=== PATIENT | female | born 1950 | race African-American/Black ===

== ENCOUNTER 2016-11-05 16:09 | Inpatient (IN) | payer OTHER, MEDICAID ==
[2016-11-05] MEDS ORDERED: NS 1000 ML 1,000 ML IV ONE (16:55)
[2016-11-05] MEDS ORDERED: NS 1000 ML 1,000 ML ONE (16:56)
[2016-11-05 17:15] LABS: ALANINE AMINOTRANSFERASE 67 Units/L (12-78); ALBUMIN 3.1 g/dL (3.4-5.0); ALKALINE PHOSPHATASE 68 Units/L (46-116); ASPARTATE AMINO TRANSFERASE 58 Units/L (15-37); SODIUM 149 mmol/L (136-145); TOTAL PROTEIN 6.4 g/dL (6.4-8.2)
--- NOTE | 2016-11-05 17:22 | DR.GENAD ---
HPI - PCP Primary Care Physician: spaulding - Complaint/Symptoms Chief Complaint Doctors Comments: History as stated by nurses note. Patient with left left leg pain and shortness of breath. Chief Complaint:: family stated her right arm has been swelling since friday, cant swollow since friday, and abd pain that started friday. - Source History Provided: Family Member, Care Home - Mode of Arrival Mode of Arrival: Stretcher - Timing Onset of Chief Complaint: 11/03/16 PMH - PMH Past Medical History: Yes Past Medical History: Anemia, Angina, Anxiety, Asthma, Coronary Artery Disease, CVA, Diabetes, Dyslipidemia, GERD, Hypertension, [place], Renal Disease Past Surgical History: Yes Surgical History: Hysterectomy Unable to Obtain Due To: Altered mental status - Family History History of Family Medical Conditions: Yes Family Medical History: Diabetes Mellitus, SD, Sudden Cardiac - Social History Does patient currently use any type of tobacco product: No Have you used tobacco products in the last 12 months: No Type of Tobacco Use: None Does any household member use tobacco: No Alcohol Use: None Do you use any recreational Drugs:: No Lives With: Family Lives Where: Home - infectious screening In the last 2 months have you had wt loss of >10#?: NO Have you had fever, night sweats or hemotysis?: No Have you traveled outside the country in the last 6 months?: No Isolation: Standard ROS - Review of Systems Constitutional: No Symptoms Reported Eyes: No Symptoms Reported ENTM: No Symptoms Reported Respiratoy: No Symptoms Reported Cardiovascular: No Symptoms Reported, Chest Pain Gastrointestinal/Abdominal: No Symptoms Reported Genitourinary: No Symptoms Reported Neurological: No Symptoms Reported Musculoskeletal: No Symptoms Reported Integumentary: No Symptoms Reported Hematologic/Lymphatic: No Symptoms Reported Endocrine: No Symptoms Reported Psychiatric: No Symptoms Reported All Other Systems: Reviewed and Negative PE - Vital Signs Vitals: Temperature 98.7 F Pulse Rate [Apical] 95 Pulse Rate 91 Respiratory Rate 20 Blood Pressure [Left Calf] 56/23 Blood Pressure [Right Arm] 123/70 Blood Pressure [Left Arm] 87/45 Blood Pressure 91/56 O2 Sat by Pulse Oximetry 99 - General Limitations: No Limitations General Appearance: Obtunded, Other (Responds to pain) - Head Head Exam: Normal Inspection, Atraumatic - Eyes Eye exam: Normal Appearance, PERRL, EOMI - ENT ENT Exam: Normal Exam External Ear Exam: Normal External Inspection TM/Canal Exam: Bilateral Normal Nose Exam: Normal Nose Exam Mouth Exam: Normal Inspection Throat Exam: Normal Inspection - Chest Chest Inspection: Normal Inspection - Respiratory Respiratory Exam: Normal Lung Sounds Bilat Respiratory Exam: Bilateral Clear to Auscultation - Cardiovascular Cardiovascular Exam: Regular Rate - Abdominal Exam Abdominal Exam: Normal Inspection Abdominal Tenderness: negative: RUQ, RLQ, LUQ, LLQ, Epigastrium, Suprapubic, Diffuse, Mild, Moderate, Severe, Other - Extremities Extremities Exam: Tenderness, Edema (left thigh) - Back Back Exam: Normal Inspection - Neurologic Neurological Exam: Alert, Other (responsive to touch) - Psychiatric Psychiatric Exam: Normal Affect - Skin Skin Exam: Warm, Dry. negative: Intact, Normal Color, Rash, Cyanosis, Diaphoresis, Erythema, Pallor, Mottled, Other ROR - Labs Reviewed Laboratory Results Reviewed?: Yes (low H/H; elevated BUN/Cr) Result Diagrams: 11/05/16 18:45 11/05/16 18:45 Laboratory: WBC 5.4 X10^3/uL (3.6-10.0) 11/05/16 18:45 RBC 1.37 X10^6/uL (3.5-5.4) L 11/05/16 18:45 Hgb 2.8 g/dL (12.0-16.0) L* 11/05/16 18:45 Hct 9.7 % (36.0-47.0) L* 11/05/16 18:45 MCV 71.1 fL (80.0-100.0) L 11/05/16 18:45 MCH 20.5 pg (27.0-34.0) L 11/05/16 18:45 MCHC 28.8 g/dL (33.0-35.0) L 11/05/16 18:45 RDW 22.5 % (11.6-16.5) H 11/05/16 18:45 Plt Count 260 X10^3/uL (150.0-450.0) 11/05/16 18:45 Plt Count Comment Adequate (ADEQUATE) 11/05/16 18:45 MPV 8.4 fL (7.4-11.0) 11/05/16 18:45 Neut % 77.4 % (42.0-75.0) H 11/05/16 18:45 Lymph % 11.6 % (21.0-51.0) L 11/05/16 18:45 [place] % 10.2 % (0.0-13.0) 11/05/16 18:45 Eos % 0.3 % (0.9-2.9) L 11/05/16 18:45 Baso % 0.5 % (0.2-1.0) 11/05/16 18:45 Neut # 4.2 x10^3/uL (2.2-4.8) 11/05/16 18:45 Lymph # 0.6 X10^3/uL (1.3-2.9) L 11/05/16 18:45 [place] # 0.6 x10^3/uL (0.3-0.8) 11/05/16 18:45 Eos # 0.0 x10^3/uL (0.0-0.2) 11/05/16 18:45 Baso # 0.0 X10^3/uL (0.0-0.1) 11/05/16 18:45 Absolute Nucleated RBC 0.8 /100WBC 11/05/16 18:45 Plt Morphology Comment Normal (NORMAL) 11/05/16 18:45 RBC Morphology Abnormal (NORMAL) A 11/05/16 18:45 Hypochromasia 2+ A 11/05/16 18:45 Poikilocytosis 2+ A 11/05/16 18:45 Anisocytosis 2+ A 11/05/16 18:45 Target Cells Present 11/05/16 18:45 Tear Drop Cells Present 11/05/16 18:45 INR Target Range - 11/05/16 16:50 INR 1.93 (0.8-1.3) H 11/05/16 16:50 PTT 33.4 SECONDS (22.9-36.5) 11/05/16 16:50 PTT Comment - 11/05/16 16:50 D-Dimer < 100 ng/mL (0-400) 11/05/16 18:45 Sodium 149 mmol/L (136-145) H 11/05/16 18:45 Corrected Sodium 151 mmol/L (136-145) H 11/05/16 18:45 Potassium 4.4 mmol/L (3.5-5.1) 11/05/16 18:45 Chloride 114 mmol/L (98-107) H 11/05/16 18:45 Carbon Dioxide 21.7 mmol/L (21-32) 11/05/16 18:45 BUN 43 mg/dL (7-18) H 11/05/16 18:45 Creatinine 1.64 mg/dL (0.55-1.02) H 11/05/16 18:45 Est GFR (MDRD) Af Amer 40 (>60) L 11/05/16 18:45 Est GFR (MDRD) Non-Af 33 (>60) L 11/05/16 18:45 Glucose 197 mg/dL (65-99) H 11/05/16 18:45 Calcium 7.8 mg/dL (8.5-10.1) L 11/05/16 18:45 Corrected Calcium 8.5 mg/dL (8.5-10.1) 11/05/16 18:45 Total Bilirubin 0.20 mg/dL (0.2-1.0) 11/05/16 18:45 AST 58 Units/L (15-37) H 11/05/16 18:45 ALT 67 Units/L (12-78) 11/05/16 18:45 Alkaline Phosphatase 68 Units/L (46-116) 11/05/16 18:45 C-Reactive Protein 1.10 mg/L (0-3.0) 11/05/16 18:45 Total Protein 6.4 g/dL (6.4-8.2) 11/05/16 18:45 Albumin 3.1 g/dL (3.4-5.0) L 11/05/16 18:45 Globulin 3.3 g/dL (2.5-4.5) 11/05/16 18:45 Albumin/Globulin Ratio 0.9 Ratio (1.1-2.1) L 11/05/16 18:45 Blood Type O POSITIVE 11/05/16 18:45 Antibody Screen Negative 11/05/16 18:45 Crossmatch See Detail 11/05/16 18:45 - Diagnosis Discharge Problem: Dehydration, Prerenal renal failure, Femoral DVT-superficial Anemia Qualifiers: Anemia type: unspecified type Qualified Code(s): D64.9 - Anemia, unspecified - Discharge Plan Condition: Stable - Follow ups/Referrals Follow ups/Referrals: SHANDA SPAULDING [Primary Care Provider] - 3 days - Instructions
--- NOTE | 2016-11-05 18:30 | VAS ---
VENOUS ULTRASOUND DOPPLER EXAMINATION OF THE RIGHT UPPER EXTREMITY HISTORY: Right arm swelling Comparison: None TECHNIQUE: Multiple murcia scale and color flow Doppler images of the deep venous system were obtaine d of the right upper extremity. FINDINGS: The deep venous system of the right upper extremity was evaluated from the level of the internal jug ular vein through the antecubital fossa. Normal color flow and augmentation can be observed. In ad dition, normal compression is seen throughout the deep venous system. IMPRESSION: 1. Negative for DVT. Reported By:
[2016-11-05 18:54] LABS: BASOPHILS % (AUTO) 0.5 % (0.2-1.0); EOSINOPHILS % (AUTO) 0.3 % (0.9-2.9); LYMPHOCYTES # (AUTO) 0.6 X10^3/uL (1.3-2.9); LYMPHOCYTES % (AUTO) 11.6 % (21.0-51.0); MEAN CORPUSCULAR HEMOGLOBIN 20.5 pg (27.0-34.0); MEAN CORPUSCULAR HGB CONC 28.8 g/dL (33.0-35.0); MEAN CORPUSCULAR VOLUME 71.1 fL (80.0-100.0); MEAN PLATELET VOLUME 8.4 fL (7.4-11.0); MONOCYTES # (AUTO) 0.6 x10^3/uL (0.3-0.8); MONOCYTES % (AUTO) 10.2 % (0.0-13.0); NEUTROPHILS # (AUTO) 4.2 x10^3/uL (2.2-4.8); NEUTROPHILS % (AUTO) 77.4 % (42.0-75.0); PLATELET COUNT 260 X10^3/uL (150.0-450.0); RED BLOOD COUNT 1.37 X10^6/uL (3.5-5.4); RED CELL DISTRIBUTION WIDTH 22.5 % (11.6-16.5); WHITE BLOOD COUNT 5.4 X10^3/uL (3.6-10.0)
[2016-11-05 18:55] LABS: D DIMER < 100 ng/mL (0-400)
[2016-11-05 18:56] LABS: HEMATOCRIT 9.7 % (36.0-47.0); HEMOGLOBIN 2.8 g/dL (12.0-16.0)
[2016-11-05 18:59] LABS: BLOOD UREA NITROGEN 43 mg/dL (7-18); CALCIUM 7.8 mg/dL (8.5-10.1); CARBON DIOXIDE 21.7 mmol/L (21-32); CHLORIDE 114 mmol/L (98-107); COR CA(FOR HYPOALB) 8.5 mg/dL (8.5-10.1); COR NA(FOR HYPERGLY) 151 mmol/L (136-145); CREATININE 1.64 mg/dL (0.55-1.02); GLUCOSE 197 mg/dL (65-99); eGFR BLACK RACES 40 (>60); eGFR NON BLACK RACES 33 (>60)
[2016-11-05 19:00] LABS: PLATELET MORPHOLOGY COMMENT NORMAL (NORMAL)
[2016-11-05 19:02] LABS: ANISOCYTOSIS 2+; HYPOCHROMASIA 2+; POIKILOCYTOSIS 2+; TARGET CELLS PRESENT; TEAR DROP CELLS PRESENT
--- NOTE | 2016-11-05 19:57 | VAS ---
VENOUS ULTRASOUND DOPPLER EXAMINATION OF THE BILATERAL LOWER EXTREMITIES HISTORY: Right cold leg. Left thigh pain. Comparison: None TECHNIQUE: Multiple murcia scale and color flow Doppler images of the deep venous system were obtaine d of the right and left lower extremity. FINDINGS: Limited examination as patient was extremely combative. There appears to be thrombus within the righ t superficial femoral vein and possibly left superficial femoral vein The deep venous system of the right and left lower extremities were evaluated from the level of the common femoral vein through the popliteal vein. Normal color flow and augmentation can be observed. In addition, normal compression is seen throughout the deep venous system. IMPRESSION: 1. Suspicion for bilateral superficial femoral vein DVT. Limited examination secondary to patient c ombativeness. Reported By:
--- NOTE | 2016-11-05 20:29 | RAD ---
HISTORY: Swelling Study: Single view of the chest. Comparison: 07/22/2016 Findings: Cardiomegaly with mild pulmonary vascular congestion. No focal consolidations, pleural effusions or pneumothorax. Osseous structures demonstrate no acute abnormality. IMPRESSION: 1. No acute cardiopulmonary process. Reported By:
[2016-11-05] MEDS ORDERED: NS 250 ML IV 250 ML IV ONE ×2 (20:37→22:59)
[2016-11-05] MEDS ORDERED: ULTRAM PO PRN (21:27)
[2016-11-05] MEDS ORDERED: NS 1000 ML 1,000 ML IV SCH (22:00)
[2016-11-06] MEDS ORDERED: NS 250 ML IV 250 ML IV ONE ×2 (01:20→03:27)
[2016-11-06 02:54] VITALS: BMI 33.5
[2016-11-06] MEDS ORDERED: [UNRECOGNIZED DRUG - OTHER] PO SCH (09:00)
[2016-11-06] MEDS ORDERED: PHARMACY CONSULT - DOSE _____ XX SCH (09:00)
[2016-11-06] MEDS ORDERED: ELIQUIS PO SCH (09:00)
[2016-11-06] MEDS ORDERED: PATIENT'S HOME MEDICATION RESPIRATORY (Apixaban [Eliquis] 1 TAB) PO SCH (09:00)
[2016-11-06] MEDS ORDERED: ASCORBIC ACID PO SCH (09:00)
[2016-11-06 09:25] LABS: BASOPHILS # (AUTO) 0.1 X10^3/uL (0.0-0.1); BASOPHILS % (AUTO) 1.2 % (0.2-1.0); EOSINOPHILS % (AUTO) 0.2 % (0.9-2.9); HEMATOCRIT 27.5 % (36.0-47.0); HEMOGLOBIN 9.2 g/dL (12.0-16.0); LYMPHOCYTES # (AUTO) 0.9 X10^3/uL (1.3-2.9); LYMPHOCYTES % (AUTO) 9.5 % (21.0-51.0); MEAN CORPUSCULAR HEMOGLOBIN 27.1 pg (27.0-34.0); MEAN CORPUSCULAR HGB CONC 33.3 g/dL (33.0-35.0); MEAN CORPUSCULAR VOLUME 81.2 fL (80.0-100.0); MEAN PLATELET VOLUME 8.6 fL (7.4-11.0); MONOCYTES # (AUTO) 0.8 x10^3/uL (0.3-0.8); MONOCYTES % (AUTO) 8.6 % (0.0-13.0); NEUTROPHILS # (AUTO) 7.6 x10^3/uL (2.2-4.8); NEUTROPHILS % (AUTO) 80.5 % (42.0-75.0); PLATELET COUNT 204 X10^3/uL (150.0-450.0); RED BLOOD COUNT 3.38 X10^6/uL (3.5-5.4); RED CELL DISTRIBUTION WIDTH 18.4 % (11.6-16.5); WHITE BLOOD COUNT 9.4 X10^3/uL (3.6-10.0)
[2016-11-06 09:46] LABS: ALBUMIN 2.9 g/dL (3.4-5.0); CALCIUM 7.8 mg/dL (8.5-10.1); CARBON DIOXIDE 23.9 mmol/L (21-32); COR CA(FOR HYPOALB) 8.7 mg/dL (8.5-10.1); CREATININE 1.43 mg/dL (0.55-1.02); TOTAL PROTEIN 5.9 g/dL (6.4-8.2)
[2016-11-06] MEDS ORDERED: DEXFERRUM or INFED 25 MG in NS 100 ML IV 100 ML IV ONE (10:00)
[2016-11-06] MEDS ORDERED: DEXFERRUM or INFED 1,000 MG in NS 500 ML IV 500 ML IV ONE (10:00)
[2016-11-06] MEDS ORDERED: NS 1/2 1000 ML IV 1,000 ML IV ONE ×3 (10:02→20:57)
[2016-11-06] MEDS: NS 1/2 1000 ML IV 1,000 ML IV SCH ×3 (10:05→20:59)
[2016-11-06] MEDS: ZESTRIL TAB 5 MG PO SCH (10:05)
[2016-11-06] MEDS: ZOLOFT PO SCH (10:05)
[2016-11-06] MEDS: CARAFATE PO SCH ×4 (10:05→20:31)
[2016-11-06] MEDS: COREG TAB 25 MG PO SCH ×2 (10:06→20:30)
[2016-11-06] MEDS: LIPITOR TAB 20 MG PO SCH (10:06)
[2016-11-06] MEDS: PROTONIX TAB 40 MG PO SCH (10:06)
[2016-11-06] MEDS: VITAMIN C PO SCH ×2 (10:06→20:51)
[2016-11-06] MEDS ORDERED: MIRALAX POWDER (255 GM BTL) PO ONE (12:00)
--- NOTE | 2016-11-06 14:57 | RAD ---
HISTORY: NG tube placement Study: Single-view the abdomen Comparison: 02/25/2015 Findings: Enteric tube is seen terminating in the region of the distal stomach. Nonobstructive bowel gas patte rn moderate retained stool seen. Stable chronic degenerative changes of the lumbosacral spine. IMPRESSION: 1. Enteric tube terminates in the region of the distal stomach. Reported By:
[2016-11-06 18:39] LABS: HEMATOCRIT 26.4 % (36.0-47.0); HEMOGLOBIN 8.8 g/dL (12.0-16.0)
[2016-11-06] MEDS ORDERED: DULCOLAX TAB EC 5 MG PO ONE (20:00)
[2016-11-06] MEDS ORDERED: SNACK - Diabetic Appropriate PO SCH (20:00)
[2016-11-06] MEDS: PEPCID TAB 20 MG PO SCH (20:31)
[2016-11-06] MEDS ORDERED: LEVEMIR SC SCH (21:00)
[2016-11-07] MEDS: NS 1/2 1000 ML IV 1,000 ML IV SCH ×4 (05:00→20:09)
[2016-11-07] MEDS ORDERED: NS 1/2 1000 ML IV 1,000 ML IV ONE ×2 (05:00→13:52)
[2016-11-07 05:53] LABS: BASOPHILS # (AUTO) 0.1 X10^3/uL (0.0-0.1); BASOPHILS % (AUTO) 0.8 % (0.2-1.0); EOSINOPHILS # (AUTO) 0.1 x10^3/uL (0.0-0.2); EOSINOPHILS % (AUTO) 1.3 % (0.9-2.9); HEMATOCRIT 27.8 % (36.0-47.0); HEMOGLOBIN 9.3 g/dL (12.0-16.0); LYMPHOCYTES # (AUTO) 0.9 X10^3/uL (1.3-2.9); MEAN CORPUSCULAR HGB CONC 33.5 g/dL (33.0-35.0); MEAN CORPUSCULAR VOLUME 80.6 fL (80.0-100.0); MEAN PLATELET VOLUME 8.2 fL (7.4-11.0); MONOCYTES # (AUTO) 0.8 x10^3/uL (0.3-0.8); NEUTROPHILS # (AUTO) 5.9 x10^3/uL (2.2-4.8); NEUTROPHILS % (AUTO) 76.9 % (42.0-75.0); PLATELET COUNT 177 X10^3/uL (150.0-450.0); RED BLOOD COUNT 3.45 X10^6/uL (3.5-5.4); WHITE BLOOD COUNT 7.7 X10^3/uL (3.6-10.0)
[2016-11-07 06:16] LABS: ALBUMIN 2.9 g/dL (3.4-5.0); ALKALINE PHOSPHATASE 78 Units/L (46-116); ANISOCYTOSIS 1+; BLOOD UREA NITROGEN 20 mg/dL (7-18); CALCIUM 7.7 mg/dL (8.5-10.1); CHLORIDE 113 mmol/L (98-107); COR CA(FOR HYPOALB) 8.6 mg/dL (8.5-10.1); COR NA(FOR HYPERGLY) 148 mmol/L (136-145); CREATININE 1.02 mg/dL (0.55-1.02); GLUCOSE 167 mg/dL (65-99); HYPOCHROMASIA 2+; PLATELET MORPHOLOGY COMMENT NORMAL (NORMAL); SODIUM 146 mmol/L (136-145); eGFR BLACK RACES > 60 (>60); eGFR NON BLACK RACES 57 (>60)
[2016-11-07 06:17] LABS: TEAR DROP CELLS NOTED
[2016-11-07 08:25] LABS: ALANINE AMINOTRANSFERASE 112 Units/L (12-78)
[2016-11-07 08:49] LABS: ASPARTATE AMINO TRANSFERASE 85 Units/L (15-37)
[2016-11-07] MEDS ORDERED: LEVEMIR SC SCH (09:23)
[2016-11-07] MEDS: COREG TAB 25 MG PO SCH ×3 (10:43→21:36)
[2016-11-07] MEDS: PROTONIX TAB 40 MG PO SCH ×2 (10:43→13:59)
[2016-11-07] MEDS: LIPITOR TAB 20 MG PO SCH ×2 (10:43→13:59)
[2016-11-07] MEDS: VITAMIN C PO SCH ×3 (10:44→21:36)
[2016-11-07] MEDS: ZESTRIL TAB 5 MG PO SCH ×2 (10:44→13:59)
[2016-11-07] MEDS: ZOLOFT PO SCH ×2 (10:44→13:59)
[2016-11-07] MEDS ORDERED: NS 1000 ML 1,000 ML ONE (12:22)
[2016-11-07] MEDS ORDERED: DIPRIVAN VIAL 20 ML ONE ×2 (12:22→12:44)
[2016-11-07] MEDS: PEPCID TAB 20 MG PO SCH (21:36)
[2016-11-08] MEDS ORDERED: NS 1/2 1000 ML IV 1,000 ML IV ONE (01:13)
[2016-11-08] MEDS: NS 1/2 1000 ML IV 1,000 ML IV SCH ×2 (01:15→11:43)
[2016-11-08 06:20] LABS: BASOPHILS # (AUTO) 0.1 X10^3/uL (0.0-0.1); BASOPHILS % (AUTO) 0.5 % (0.2-1.0); EOSINOPHILS # (AUTO) 0.1 x10^3/uL (0.0-0.2); EOSINOPHILS % (AUTO) 0.6 % (0.9-2.9); HEMATOCRIT 27.2 % (36.0-47.0); LYMPHOCYTES # (AUTO) 0.7 X10^3/uL (1.3-2.9); LYMPHOCYTES % (AUTO) 6.8 % (21.0-51.0); MEAN CORPUSCULAR HEMOGLOBIN 26.7 pg (27.0-34.0); MEAN CORPUSCULAR HGB CONC 33.2 g/dL (33.0-35.0); MEAN CORPUSCULAR VOLUME 80.2 fL (80.0-100.0); MEAN PLATELET VOLUME 8.9 fL (7.4-11.0); MONOCYTES # (AUTO) 0.8 x10^3/uL (0.3-0.8); MONOCYTES % (AUTO) 8.6 % (0.0-13.0); NEUTROPHILS # (AUTO) 8.1 x10^3/uL (2.2-4.8); NEUTROPHILS % (AUTO) 83.5 % (42.0-75.0); PLATELET COUNT 192 X10^3/uL (150.0-450.0); RED BLOOD COUNT 3.39 X10^6/uL (3.5-5.4); RED CELL DISTRIBUTION WIDTH 19.6 % (11.6-16.5); WHITE BLOOD COUNT 9.7 X10^3/uL (3.6-10.0)
[2016-11-08 06:49] LABS: ALANINE AMINOTRANSFERASE 86 Units/L (12-78); ALKALINE PHOSPHATASE 79 Units/L (46-116); BLOOD UREA NITROGEN 11 mg/dL (7-18); CALCIUM 8.1 mg/dL (8.5-10.1); CHLORIDE 111 mmol/L (98-107); COR CA(FOR HYPOALB) 8.9 mg/dL (8.5-10.1); COR NA(FOR HYPERGLY) 143 mmol/L (136-145); CREATININE 0.89 mg/dL (0.55-1.02); GLUCOSE 120 mg/dL (65-99); SODIUM 143 mmol/L (136-145); TOTAL PROTEIN 5.9 g/dL (6.4-8.2); eGFR BLACK RACES > 60 (>60); eGFR NON BLACK RACES > 60 (>60)
[2016-11-08 07:45] LABS: ASPARTATE AMINO TRANSFERASE 56 Units/L (15-37)
[2016-11-08 07:51] LABS: ANISOCYTOSIS 1+; HYPOCHROMASIA SLIGHT; PLATELET MORPHOLOGY COMMENT NORMAL (NORMAL)
[2016-11-08 08:05] VITALS: BP 128/64
[2016-11-08] MEDS: COREG TAB 25 MG PO SCH (10:05)
[2016-11-08] MEDS: LIPITOR TAB 20 MG PO SCH (10:05)
[2016-11-08] MEDS: PROTONIX TAB 40 MG PO SCH (10:06)
[2016-11-08] MEDS: VITAMIN C PO SCH (10:06)
[2016-11-08] MEDS: ZESTRIL TAB 5 MG PO SCH (10:06)
[2016-11-08] MEDS: ZOLOFT PO SCH (10:06)
[2016-11-08] MEDS ORDERED: SNACK - Diabetic Appropriate PO SCH (20:00)
== END 2016-11-08 11:40 | DRG 812 ==
LOC: ER 16:25 → ICU 21:23
PROVIDERS: ADMIT Internal Medicine; ATTEND Obstetrics & Gynecology Obstetrics
PROC: 30233N1 Transfusion of Nonautologous Red Blood Cells into Peripheral Vein, Percutaneous Approach (ICD-10-PCS; 2016-11-05)
PROC: 30233N1 Transfusion of Nonautologous Red Blood Cells into Peripheral Vein, Percutaneous Approach (ICD-10-PCS; 2016-11-05)
PROC: 30233N1 Transfusion of Nonautologous Red Blood Cells into Peripheral Vein, Percutaneous Approach (ICD-10-PCS; 2016-11-06)
PROC: 30233N1 Transfusion of Nonautologous Red Blood Cells into Peripheral Vein, Percutaneous Approach (ICD-10-PCS; 2016-11-06)
PROC: 0DBN8ZZ Excision of Sigmoid Colon, Via Natural or Artificial Opening Endoscopic (ICD-10-PCS; 2016-11-07)
PROC: 0W3P8ZZ Control Bleeding in Gastrointestinal Tract, Via Natural or Artificial Opening Endoscopic (ICD-10-PCS; principal; 2016-11-07 12:30)
PROC: 0DJD8ZZ Inspection of Lower Intestinal Tract, Via Natural or Artificial Opening Endoscopic (ICD-10-PCS; 2016-11-07 12:30)
DX: D50.0 Iron deficiency anemia secondary to blood loss (chronic) (principal); E78.2 Mixed hyperlipidemia; I82.413 Acute embolism and thrombosis of femoral vein, bilateral; E87.0 Hyperosmolality and hypernatremia; D64.89 Other specified anemias; R06.02 Shortness of breath; M79.605 Pain in left leg; I25.10 Atherosclerotic heart disease of native coronary artery without angina pectoris; K21.9 Gastro-esophageal reflux disease without esophagitis; I10 Essential (primary) hypertension; E86.0 Dehydration; J44.9 Chronic obstructive pulmonary disease, unspecified; F32.89 Other specified depressive episodes; B18.2 Chronic viral hepatitis C; K74.69 Other cirrhosis of liver; K29.00 Acute gastritis without bleeding; K63.5 Polyp of colon; K64.8 Other hemorrhoids; Q27.33 Arteriovenous malformation of digestive system vessel; R13.11 Dysphagia, oral phase
CPT/HCPCS: 36415; 36430; 71010; 74000; 80053; 82270; 85014; 85018; 85025; 85378; 85610; 85730; 86140; 86850; 86900; 86901; 86920; 86921; 86922; 88305; 93970; 93971; 96365; 96367; 99284; 99285; A4216; A4222; P9016; 1956; A4217; J1750; J3490

== ENCOUNTER → 2016-11-12 | Outpatient (CLI) | payer OTHER, MEDICAID ==
[2016-11-08 08:05] VITALS: BP 128/64
--- NOTE | 2016-11-12 16:30 | RAD ---
HISTORY: Wheezing and edema Study: AP chest Comparison: November 05 Findings: The trachea is midline. The cardiac silhouette is prominent with intact pacer wires and defibrillat or wires from the right subclavian vein.. The lungs are clear without focal infiltrate or effusion. The bony thorax is unremarkable. IMPRESSION: 1. No acute cardiopulmonary disease. Reported By:
== END ==
LOC: RAD 13:54
PROVIDERS: ATTEND Obstetrics & Gynecology Obstetrics
DX: R06.2 Wheezing (principal); R60.1 Generalized edema
CPT/HCPCS: 71010

== ENCOUNTER → 2016-12-09 | Outpatient (CLI) | payer OTHER, MEDICAID | LOC: RAD 08:51 | PROVIDERS: ATTEND Internal Medicine Cardiovascular Disease | DX: D64.89 Other specified anemias (principal); Z79.899 Other long term (current) drug therapy; I25.10 Atherosclerotic heart disease of native coronary artery without angina pectoris | CPT/HCPCS: 36415; 78452; 80053; 85025; 93017; A9502; J2785 ==

== ENCOUNTER 2017-02-11 16:06 | Inpatient (IN) | payer OTHER, MEDICAID ==
[2017-02-11] MEDS ORDERED: TYLENOL 325 MG TAB PO PRN (17:57)
[2017-02-11] MEDS ORDERED: BENADRYL INJ 50 MG VIAL IVP PRN (17:57)
[2017-02-11] MEDS ORDERED: NS 500 ML IV 500 ML IV ONE (17:57)
[2017-02-11] MEDS ORDERED: NS 250 ML IV 250 ML IV ONE (22:34)
[2017-02-11] MEDS: NS 1000 ML 1,000 ML IV SCH (22:44)
[2017-02-12 07:42] LABS: BASOPHILS % (AUTO) 0.7 % (0.2-1.0); EOSINOPHILS # (AUTO) 0.1 x10^3/uL (0.0-0.2); EOSINOPHILS % (AUTO) 1.7 % (0.9-2.9); HEMATOCRIT 29.2 % (36.0-47.0); HEMOGLOBIN 9.4 g/dL (12.0-16.0); LYMPHOCYTES # (AUTO) 1.2 X10^3/uL (1.3-2.9); LYMPHOCYTES % (AUTO) 22.9 % (21.0-51.0); MEAN CORPUSCULAR HEMOGLOBIN 27.1 pg (27.0-34.0); MEAN CORPUSCULAR HGB CONC 32.1 g/dL (33.0-35.0); MEAN CORPUSCULAR VOLUME 84.5 fL (80.0-100.0); MEAN PLATELET VOLUME 8.2 fL (7.4-11.0); MONOCYTES # (AUTO) 0.5 x10^3/uL (0.3-0.8); NEUTROPHILS # (AUTO) 3.3 x10^3/uL (2.2-4.8); NEUTROPHILS % (AUTO) 64.7 % (42.0-75.0); PLATELET COUNT 217 X10^3/uL (150.0-450.0); RED BLOOD COUNT 3.45 X10^6/uL (3.5-5.4); RED CELL DISTRIBUTION WIDTH 17.9 % (11.6-16.5); WHITE BLOOD COUNT 5.1 X10^3/uL (3.6-10.0)
[2017-02-12 07:50] LABS: ALANINE AMINOTRANSFERASE 29 Units/L (12-78); ALBUMIN 2.9 g/dL (3.4-5.0); ALKALINE PHOSPHATASE 89 Units/L (46-116); ASPARTATE AMINO TRANSFERASE 23 Units/L (15-37); BLOOD UREA NITROGEN 13 mg/dL (7-18); CALCIUM 8.1 mg/dL (8.5-10.1); CARBON DIOXIDE 28.8 mmol/L (21-32); CHLORIDE 112 mmol/L (98-107); CREATININE 0.91 mg/dL (0.55-1.02); GLUCOSE 98 mg/dL (65-99); SODIUM 145 mmol/L (136-145); TOTAL PROTEIN 6.2 g/dL (6.4-8.2); eGFR BLACK RACES > 60 (>60); eGFR NON BLACK RACES > 60 (>60)
[2017-02-12] MEDS ORDERED: PATIENT'S HOME MEDICATION (Budesonide/Formoterol Fumarate [Symbicort 160-4.5 Mcg/Act (6 G) INH SCH (09:00)
[2017-02-12] MEDS ORDERED: PATIENT'S HOME MEDICATION (Sertraline Hcl [Zoloft 25 Mg] 1 TAB) PO SCH (09:00)
[2017-02-12] MEDS ORDERED: PATIENT'S HOME MEDICATION (Ascorbic Acid [Vitamin C] 500 MG) PO SCH (09:00)
[2017-02-12] MEDS: VITAMIN C PO SCH ×2 (09:58→22:02)
[2017-02-12] MEDS: LIPITOR TAB 20 MG PO SCH (09:58)
[2017-02-12] MEDS: ZOLOFT PO SCH (09:58)
[2017-02-12] MEDS: COREG TAB 25 MG PO SCH ×2 (09:58→22:00)
[2017-02-12] MEDS: ZESTRIL TAB 5 MG PO SCH (09:58)
[2017-02-12] MEDS: PEPCID 20 MG IV PREMIX* 20 MG/50 ML BAG IV SCH (10:08)
[2017-02-12] MEDS: PROTONIX TAB 40 MG PO SCH (10:08)
--- NOTE | 2017-02-12 10:18 | DR.H&P ---
H&P - History & Physical for Day of: H&P Date: 02/12/17 - Chief Complaint Chief Complaint: ANEMIA, HEMOGLOBIN 7.0 - Allergies Allergies/Adverse Reactions: Allergies Allergy/AdvReac Type Severity Reaction Status Date / Time Iodine and Iodide Containing AdvReac Verified 02/12/17 04:56 Produc - History of Present Illness History of Present Illness: IS A 66 YEAR OLD RESIDENT OF [facility] WHO WAS DIRECT ADMITTED YESTERDAY. SHE HAD ROUTINE LABS DRAWN AT [facility] AND THEY REPORTED A HEMOGLOBIN OF 7.0. WE ADMITTED PATIENT FOR FURTHER TREATMENT AND EVALUATION. WE WILL TYPE AND SCREEN PATIENT ON ADMISSION AND TRANSFUSE 2 UNITS PRBC. WE WILL RECHECK LABS AND CONTINUE TO MONITOR PATIENT. - Past Medical History Past Medical History: Anemia, Angina, Anxiety, Asthma, Coronary Artery Disease, CVA, Diabetes, Dyslipidemia, GERD, Hypertension, [place], Renal Disease - Past Surgical History Surgical History: Hysterectomy - Family History Family Medical History: Diabetes Mellitus, Hypertension - Social History Does patient currently use any type of tobacco product: No Have you used tobacco products in the last 12 months: No Type of Tobacco Use: Cigarettes Alcohol Use: None Drug Use: None - Medications Home Medications: Apixaban [Eliquis] 5 mg PO BID 02/11/17 [History Confirmed 02/11/17] - Review of Systems Constitutional: Weakness Eyes: No Symptoms Reported. denies: See HPI, Pain, Vision Change, Conjunctivae Inflammation, Eyelid Inflammation, Redness, Other ENT: No Symptoms Reported. denies: See HPI, Ear Pain, Ear Discharge, Nose Pain , Nose Discharge, Nose Congestion, Mouth Pain, Mouth Swelling, Throat Pain, Throat Swelling, Other Respiratory: Shortness of Breath. denies: No Symptoms Reported, See HPI, Cough , Dry, Hemoptysis, SOB with Excertion, Pleuritic Pain, Sputum, Wheezing, Other Cardiovascular: No Symptoms Reported. denies: Chest Pain, See HPI, Palpitations , Orthopnea, Paroxysmal Noc. Dyspnea, Edema, Light Headedness, Other Gastrointestinal: No Symptoms Reported. denies: See HPI, Nausea, Vomiting, Abdominal Pain, Diarrhea, Constipation, Melena, Hematochezia, Other Genitourinary: No Symptoms Reported. denies: See HPI, Dysuria, Frequency, Incontinence, Hematuria, Retention, Other Musculoskeletal: No Symptoms Reported. denies: See HPI, Shoulder Pain, Arm Pain , Back Pain, Hand Pain, Leg Pain, Foot Pain, Neck Pain, Other Skin: No Symptoms Reported. denies: See HPI, Rash, Lesions, Jaundice, Bruising , Wound, Ecchymosis, Other Neurological: No Symptoms Reported. denies: See HPI, Weakness, Numbness, Incoordination, Change in Speech, Confusion, Seizures, Other - Physical Exam Vital Signs: Temperature 98.4 F Pulse Rate [Left Brachial] 96 Respiratory Rate 19 Blood Pressure [Left Calf] 56/23 Blood Pressure [Right Arm] 123/70 Blood Pressure [Left Arm] 118/58 Blood Pressure 128/64 O2 Sat by Pulse Oximetry 99 Oriented: Normal Eyes: Normal. negative: Blurred Vision, Diplopia, Discharge, Pain, Redness, Photophobia, Other Ear: Normal. negative: Right, Left, Swelling, Ecchymosis, Hemotypanum, Abrasion , Laceration Nose: Normal. negative: Injected, Discharge, Blood, Other Throat: Normal. negative: Tonsillar Hypertrophy, Red, Exudate, Dry, Other Respiratory: Clear Throughout. negative: Diminished Throughout, Rhonchi Throughout, Rales Throughout, Wheezes Throughout, RUL Clear, RML Clear, RLL Clear, BELLA Clear, LML Clear, LLL Clear, RUL Diminished, RML Diminished, RLL Diminished, BELLA Diminished, LML Diminished, LLL Diminished, RUL Absent, RML Absent, RLL Absent, BELLA Absent, LML Absent, LLL Absent, RUL Rhonchi, RML Rhonchi , RLL Rhonchi, BELLA Rhonchi, LML Rhonchi, LLL Rhonchi, RUL Insp. Wheeze, RML Insp. Wheeze, RLL Insp. Wheeze, BELLA Insp.Wheeze, LML Insp.Wheeze, LLL Insp.Wheeze, RUL Exp. Wheeze, RML Exp. Wheeze, RLL Exp. Wheeze, BELLA Exp. Wheeze , LML Exp. Wheeze, LLL Exp. Wheeze, RUL Rales, RML Rales, RLL Rales, BELLA Rales, LML Rales, LLL Rales, RUL Rub, RML Rub, RLL Rub, BELLA Rub, LML Rub, LLL Rub, RUL Squeak, RML Squeak, RLL Squeak, BELLA Squeak, LML Squeak, LLL Squeak Cardiovascular: Normal. negative: Tachycardia, Bradycardia, Irregular, S3, S4, Systolic, Diastolic, Murmur, Edema, Other : Normal. negative: Dysuria, Hematuria, Frequency, Discharge, Testicular Pain , Bleeding, , Other Auscultation: Bowel Sounds: Normal. negative: Bruit, Absent, Increased, Decreased, High Pitched, Other Palpation: Normal. negative: Spleen Enlarged, Liver Enlarged, Mass Pulsatile, Other Tenderness: Normal Skin: Normal. negative: Decreased Turgur, Rash, Papular, Macular, Maculopapular , Vesicular, Pustular, Petechial, Red, Tender, Hot, Diaphoresis, Wound, Bruising , Ecchymosis, Other Musculoskeletal: Normal. negative: Right, Left, Shoulder, Clavicle, Arm, Elbow , Forearm, Wrist, Hand, Hip, Thigh, Knee, Leg, Ankle, Foot, Back:Thoracic, Back: Lumbar, Back:Midline, Back:Paraspinous, Pelvis, Swelling, Tender, Deformity, Pulse Deficit, Motor Deficit, Sensory Deficit, Instability, Crepitance Psychiatric: Normal Mood Description: Calm Affect: Normal Speech Pattern: Clear - Assessment/Plan (1) Anemia Qualifiers: Anemia type: unspecified type Iron deficiency anemia type: I Vitamin B12 deficiency anemia type: V Folate deficiency anemia type: F Bone marrow failure anemia type: B Hemolytic anemia type: H Other causes of anemia: O Chronic kidney disease stage: C Qualified Code(s): D64.9 - Anemia, unspecified Status: Acute Plan: TRANSFUSE 2 UNITS PRBC, CONTINUE TO MONITOR H&H
--- NOTE | 2017-02-12 10:31 | PCM.PROG ---
Progress Note - Progress Note for Day of Date: 02/12/17 - Subjective Subjective: WAS ADMITTED YESTERDAY FOR ANEMIA AND TRANSFUSION OF PRBC. SHE IS ALERT IN BED ON MORNING ROUNDS. PATIENT DOES NOT VOICE ANY COMPLAINTS AT THIS TIME. ON EXAMINATION, LUNGS ARE CLEAR TO AUSCULTATION. BOWEL SOUNDS ARE NORMAL IN ALL QUADRANTS. VITALS THIS MORINING ARE 98.4, 96, 19, 99%, 118/58. LABS REPORTED RBC 3.45, HGB 9.4, HCT 29.2, CHLORIDE 112, CALCIUM 8.2, TOTAL PROTEIN 6.2, ALBUMIN 2.9. WE WILL CONSULT , CHECK STOOLS FOR OCCULT BLOOD, START PEPCID AND PROTONIX. WE WILL RECHECK LABS AND FOLLOW UP WITH PATIENT IN AM. - Past Medical Family Social History Past Med/Fam/Surg Hx: No changes since H&P Allergies: Allergies Iodine and Iodide Containing Produc Adverse Reaction (Verified 02/12/17 04:56) - Review of Systems ROS: No change since H&P - Vital Signs and I&O's Vital Signs: Temperature 98.4 F Pulse Rate [Left Brachial] 96 Respiratory Rate 19 Blood Pressure [Left Calf] 56/23 Blood Pressure [Right Arm] 123/70 Blood Pressure [Left Arm] 118/58 Blood Pressure 128/64 O2 Sat by Pulse Oximetry 99 Intake and Output: Intake & Output 02/09/17 02/10/17 02/11/17 02/12/17 11:59 11:59 11:59 11:59 Intake Total 150 Balance 150 - Physical Exam Oriented: Normal Eyes: Normal. negative: Blurred Vision, Diplopia, Discharge, Pain, Redness, Photophobia, Other Ear: Normal. negative: Right, Left, Swelling, Ecchymosis, Hemotypanum, Abrasion , Laceration Nose: Normal. negative: Injected, Discharge, Blood, Other Throat: Normal. negative: Tonsillar Hypertrophy, Red, Exudate, Dry, Other Respiratory: Normal Cardiovascular: Normal. negative: Tachycardia, Bradycardia, Irregular, S3, S4, Systolic, Diastolic, Murmur, Edema, Other : Normal. negative: Dysuria, Hematuria, Frequency, Discharge, Testicular Pain , Bleeding, , Other Auscultation: Bowel Sounds: Normal. negative: Bruit, Absent, Increased, Decreased, High Pitched, Other Palpation: Normal Tenderness: Normal Skin: Normal. negative: Decreased Turgur, Rash, Papular, Macular, Maculopapular , Vesicular, Pustular, Petechial, Red, Tender, Hot, Diaphoresis, Wound, Bruising , Ecchymosis, Other Musculoskeletal: Normal. negative: Right, Left, Shoulder, Clavicle, Arm, Elbow , Forearm, Wrist, Hand, Hip, Thigh, Knee, Leg, Ankle, Foot, Back:Thoracic, Back: Lumbar, Back:Midline, Back:Paraspinous, Pelvis, Swelling, Tender, Deformity, Pulse Deficit, Motor Deficit, Sensory Deficit, Instability, Crepitance Psychiatric: Normal Mood Description: Calm Affect: Normal Speech Pattern: Clear - Laboratory and Diagnostics Result Diagrams: 02/12/17 07:25 02/12/17 07:25 Labs: Laboratory WBC 5.1 X10^3/uL (3.6-10.0) 02/12/17 07:25 RBC 3.45 X10^6/uL (3.5-5.4) L 02/12/17 07:25 Hgb 9.4 g/dL (12.0-16.0) L 02/12/17 07:25 Hct 29.2 % (36.0-47.0) L 02/12/17 07:25 MCV 84.5 fL (80.0-100.0) 02/12/17 07:25 MCH 27.1 pg (27.0-34.0) 02/12/17 07:25 MCHC 32.1 g/dL (33.0-35.0) L 02/12/17 07:25 RDW 17.9 % (11.6-16.5) H 02/12/17 07:25 Plt Count 217 X10^3/uL (150.0-450.0) 02/12/17 07:25 MPV 8.2 fL (7.4-11.0) 02/12/17 07:25 Neut % 64.7 % (42.0-75.0) 02/12/17 07:25 Lymph % 22.9 % (21.0-51.0) 02/12/17 07:25 [place] % 10.0 % (0.0-13.0) 02/12/17 07:25 Eos % 1.7 % (0.9-2.9) 02/12/17 07:25 Baso % 0.7 % (0.2-1.0) 02/12/17 07:25 Neut # 3.3 x10^3/uL (2.2-4.8) 02/12/17 07:25 Lymph # 1.2 X10^3/uL (1.3-2.9) L 02/12/17 07:25 [place] # 0.5 x10^3/uL (0.3-0.8) 02/12/17 07:25 Eos # 0.1 x10^3/uL (0.0-0.2) 02/12/17 07:25 Baso # 0.0 X10^3/uL (0.0-0.1) 02/12/17 07:25 Absolute Nucleated RBC 0.2 /100WBC 02/12/17 07:25 Sodium 145 mmol/L (136-145) 02/12/17 07:25 Corrected Sodium TNP 02/12/17 07:25 Potassium 3.8 mmol/L (3.5-5.1) 02/12/17 07:25 Chloride 112 mmol/L (98-107) H 02/12/17 07:25 Carbon Dioxide 28.8 mmol/L (21-32) 02/12/17 07:25 BUN 13 mg/dL (7-18) 02/12/17 07:25 Creatinine 0.91 mg/dL (0.55-1.02) 02/12/17 07:25 Est GFR (MDRD) Af Amer > 60 (>60) 02/12/17 07:25 Est GFR (MDRD) Non-Af > 60 (>60) 02/12/17 07:25 Glucose 98 mg/dL (65-99) 02/12/17 07:25 Calcium 8.1 mg/dL (8.5-10.1) L 02/12/17 07:25 Corrected Calcium 9.0 mg/dL (8.5-10.1) 02/12/17 07:25 Total Bilirubin 0.20 mg/dL (0.2-1.0) 02/12/17 07:25 AST 23 Units/L (15-37) 02/12/17 07:25 ALT 29 Units/L (12-78) 02/12/17 07:25 Alkaline Phosphatase 89 Units/L (46-116) 02/12/17 07:25 Total Protein 6.2 g/dL (6.4-8.2) L 02/12/17 07:25 Albumin 2.9 g/dL (3.4-5.0) L 02/12/17 07:25 Globulin 3.3 g/dL (2.5-4.5) 02/12/17 07:25 Albumin/Globulin Ratio 0.9 Ratio (1.1-2.1) L 02/12/17 07:25 Blood Type O POSITIVE 02/11/17 18:42 Antibody Screen Negative 02/11/17 18:42 Crossmatch See Detail 02/11/17 18:42 - Plan (1) Anemia Status: Acute Qualifiers: Anemia type: unspecified type Iron deficiency anemia type: I Vitamin B12 deficiency anemia type: V Folate deficiency anemia type: F Bone marrow failure anemia type: B Hemolytic anemia type: H Other causes of anemia: O Chronic kidney disease stage: C Qualified Code(s): D64.9 - Anemia, unspecified Plan: TRANSFUSE 2 UNITS PRBC, CONTINUE TO MONITOR H&H (2) Depression Status: Chronic Qualifiers: Depression Type: D Major depression recurrence: M Active/Remission status : A Major depression episode severity: M Psychotic features: P Trimester: T Plan: CONTINUE [place], CONTINUE TO MONITOR (3) COPD (chronic obstructive pulmonary disease) Status: Chronic Qualifiers: COPD type: C Chronic bronchitis type: C Emphysema type: E Plan: CONTINUE BREATHING [place], CONTINUE TO MONITOR (4) Diabetes mellitus, type 2 Status: Chronic Qualifiers: Diabetes mellitus complication status: with unspecified complications Diabetes mellitus complication detail: D Diabetic retinopathy severity: D Proliferative retinopathy type: P Diabetes mellitus macular edema: D 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
[2017-02-12] MEDS: PULMICORT NEB TX 0.5 MG NEB SCH ×2 (11:42→20:24)
[2017-02-12] MEDS: PROVENTIL NEB TX 0.083% 2.5MG/ 3ML NEB SCH ×4 (11:42→20:24)
[2017-02-12] MEDS: HumuLIN R SUBCUT PRN (12:06)
[2017-02-12] MEDS: SNACK - Diabetic Appropriate PO SCH (19:42)
[2017-02-12 20:03] LABS: HEMATOCRIT 28.4 % (36.0-47.0); HEMOGLOBIN 9.2 g/dL (12.0-16.0)
[2017-02-12] MEDS ORDERED: PEPCID TAB 20 MG PO SCH (21:00)
[2017-02-12] MEDS: ULTRAM PO PRN (22:00)
[2017-02-12] MEDS: LEVEMIR SC SCH (22:01)
[2017-02-12] MEDS: NS 1000 ML 1,000 ML IV SCH ×2 (22:02→23:14)
[2017-02-13 05:15] LABS: ALANINE AMINOTRANSFERASE 32 Units/L (12-78); ALKALINE PHOSPHATASE 93 Units/L (46-116); ASPARTATE AMINO TRANSFERASE 28 Units/L (15-37); BLOOD UREA NITROGEN 10 mg/dL (7-18); CARBON DIOXIDE 26.4 mmol/L (21-32); CHLORIDE 111 mmol/L (98-107); COR CA(FOR HYPOALB) 8.8 mg/dL (8.5-10.1); COR NA(FOR HYPERGLY) 145 mmol/L (136-145); GLUCOSE 125 mg/dL (65-99); SODIUM 144 mmol/L (136-145); TOTAL PROTEIN 6.5 g/dL (6.4-8.2); eGFR BLACK RACES > 60 (>60); eGFR NON BLACK RACES > 60 (>60)
[2017-02-13 05:17] LABS: BASOPHILS % (AUTO) 0.7 % (0.2-1.0); EOSINOPHILS # (AUTO) 0.1 x10^3/uL (0.0-0.2); EOSINOPHILS % (AUTO) 1.7 % (0.9-2.9); HEMATOCRIT 29.9 % (36.0-47.0); HEMOGLOBIN 9.8 g/dL (12.0-16.0); LYMPHOCYTES # (AUTO) 1.2 X10^3/uL (1.3-2.9); LYMPHOCYTES % (AUTO) 24.3 % (21.0-51.0); MEAN CORPUSCULAR HEMOGLOBIN 27.5 pg (27.0-34.0); MEAN CORPUSCULAR HGB CONC 32.9 g/dL (33.0-35.0); MEAN CORPUSCULAR VOLUME 83.4 fL (80.0-100.0); MEAN PLATELET VOLUME 8.5 fL (7.4-11.0); MONOCYTES # (AUTO) 0.6 x10^3/uL (0.3-0.8); MONOCYTES % (AUTO) 11.4 % (0.0-13.0); NEUTROPHILS # (AUTO) 3.1 x10^3/uL (2.2-4.8); NEUTROPHILS % (AUTO) 61.9 % (42.0-75.0); PLATELET COUNT 224 X10^3/uL (150.0-450.0); RED BLOOD COUNT 3.58 X10^6/uL (3.5-5.4); RED CELL DISTRIBUTION WIDTH 17.3 % (11.6-16.5)
[2017-02-13] MEDS: PULMICORT NEB TX 0.5 MG NEB SCH ×2 (08:59→20:40)
[2017-02-13] MEDS: PROVENTIL NEB TX 0.083% 2.5MG/ 3ML NEB SCH ×4 (08:59→20:40)
[2017-02-13] MEDS: NS 1000 ML 1,000 ML IV SCH ×3 (09:00→17:35)
[2017-02-13 09:54] VITALS: BMI 31.2
[2017-02-13] MEDS ORDERED: DIPRIVAN VIAL 20 ML ONE (10:02)
[2017-02-13] MEDS ORDERED: GLUCAGEN ONE (10:16)
--- NOTE | 2017-02-13 10:29 | PCM.PROG ---
Progress Note - Progress Note for Day of Date: 02/13/17 - Subjective Subjective: IS ALERT IN BED ON MORNING ROUNDS. SHE IS WITH COMPLAINTS OF SHORTNESS OF BREATH AT THIS TIME. ON EXAMINATION, LUNGS ARE CLEAR TO AUSCULTATION. BOWEL SOUNDS ARE NORMAL IN ALL QUADRANTS. VITALS THIS MORINING ARE 98.4, 91, 16, 94%, 140/84. LABS REPORTED RBC 3.58, HGB 9.8, HCT 29.9, CHLORIDE 111, CALCIUM 8.0, ALBUMIN 3.0. WE ARE AWAITING CONSULT FROM . WE WILL CONTINUE PROTONIX AND PEPCID AND RECHECK LABS AND FOLLOW UP WITH PATIENT IN AM. - Past Medical Family Social History Past Med/Fam/Surg Hx: No changes since H&P Allergies: Allergies Iodine and Iodide Containing Produc Adverse Reaction (Verified 02/12/17 04:56) - Review of Systems ROS: No change since H&P - Vital Signs and I&O's Vital Signs: Temperature 98.4 F Pulse Rate [Left Brachial] 85 Pulse Rate 91 Respiratory Rate 16 Blood Pressure [Left Calf] 56/23 Blood Pressure [Right Arm] 123/70 Blood Pressure [Left Arm] 173/88 Blood Pressure 140/84 O2 Sat by Pulse Oximetry 94 Intake and Output: Intake & Output 02/10/17 02/11/17 02/12/17 02/13/17 11:59 11:59 11:59 11:59 Intake Total 150 968 Balance 150 968 - Physical Exam Oriented: Normal Eyes: Normal. negative: Blurred Vision, Diplopia, Discharge, Pain, Redness, Photophobia, Other Ear: Normal. negative: Right, Left, Swelling, Ecchymosis, Hemotypanum, Abrasion , Laceration Nose: Normal. negative: Injected, Discharge, Blood, Other Throat: Normal. negative: Tonsillar Hypertrophy, Red, Exudate, Dry, Other Respiratory: Normal Cardiovascular: Normal. negative: Tachycardia, Bradycardia, Irregular, S3, S4, Systolic, Diastolic, Murmur, Edema, Other : Normal. negative: Dysuria, Hematuria, Frequency, Discharge, Testicular Pain , Bleeding, , Other Auscultation: Bowel Sounds: Normal. negative: Bruit, Absent, Increased, Decreased, High Pitched, Other Palpation: Normal Tenderness: Normal Skin: Normal. negative: Decreased Turgur, Rash, Papular, Macular, Maculopapular , Vesicular, Pustular, Petechial, Red, Tender, Hot, Diaphoresis, Wound, Bruising , Ecchymosis, Other Musculoskeletal: Normal. negative: Right, Left, Shoulder, Clavicle, Arm, Elbow , Forearm, Wrist, Hand, Hip, Thigh, Knee, Leg, Ankle, Foot, Back:Thoracic, Back: Lumbar, Back:Midline, Back:Paraspinous, Pelvis, Swelling, Tender, Deformity, Pulse Deficit, Motor Deficit, Sensory Deficit, Instability, Crepitance Psychiatric: Normal Mood Description: Calm Affect: Normal Speech Pattern: Clear, Appropriate - Laboratory and Diagnostics Result Diagrams: 02/13/17 04:35 02/13/17 04:35 Labs: Laboratory WBC 5.0 X10^3/uL (3.6-10.0) 02/13/17 04:35 RBC 3.58 X10^6/uL (3.5-5.4) 02/13/17 04:35 Hgb 9.8 g/dL (12.0-16.0) L 02/13/17 04:35 Hct 29.9 % (36.0-47.0) L 02/13/17 04:35 MCV 83.4 fL (80.0-100.0) 02/13/17 04:35 MCH 27.5 pg (27.0-34.0) 02/13/17 04:35 MCHC 32.9 g/dL (33.0-35.0) L 02/13/17 04:35 RDW 17.3 % (11.6-16.5) H 02/13/17 04:35 Plt Count 224 X10^3/uL (150.0-450.0) 02/13/17 04:35 MPV 8.5 fL (7.4-11.0) 02/13/17 04:35 Neut % 61.9 % (42.0-75.0) 02/13/17 04:35 Lymph % 24.3 % (21.0-51.0) 02/13/17 04:35 [place] % 11.4 % (0.0-13.0) 02/13/17 04:35 Eos % 1.7 % (0.9-2.9) 02/13/17 04:35 Baso % 0.7 % (0.2-1.0) 02/13/17 04:35 Neut # 3.1 x10^3/uL (2.2-4.8) 02/13/17 04:35 Lymph # 1.2 X10^3/uL (1.3-2.9) L 02/13/17 04:35 [place] # 0.6 x10^3/uL (0.3-0.8) 02/13/17 04:35 Eos # 0.1 x10^3/uL (0.0-0.2) 02/13/17 04:35 Baso # 0.0 X10^3/uL (0.0-0.1) 02/13/17 04:35 Absolute Nucleated RBC 0.3 /100WBC 02/13/17 04:35 Sodium 144 mmol/L (136-145) 02/13/17 04:35 Corrected Sodium 145 mmol/L (136-145) 02/13/17 04:35 Potassium 3.9 mmol/L (3.5-5.1) 02/13/17 04:35 Chloride 111 mmol/L (98-107) H 02/13/17 04:35 Carbon Dioxide 26.4 mmol/L (21-32) 02/13/17 04:35 BUN 10 mg/dL (7-18) 02/13/17 04:35 Creatinine 0.90 mg/dL (0.55-1.02) 02/13/17 04:35 Est GFR (MDRD) Af Amer > 60 (>60) 02/13/17 04:35 Est GFR (MDRD) Non-Af > 60 (>60) 02/13/17 04:35 Glucose 125 mg/dL (65-99) H 02/13/17 04:35 Calcium 8.0 mg/dL (8.5-10.1) L 02/13/17 04:35 Corrected Calcium 8.8 mg/dL (8.5-10.1) 02/13/17 04:35 Total Bilirubin 0.20 mg/dL (0.2-1.0) 02/13/17 04:35 AST 28 Units/L (15-37) 02/13/17 04:35 ALT 32 Units/L (12-78) 02/13/17 04:35 Alkaline Phosphatase 93 Units/L (46-116) 02/13/17 04:35 Total Protein 6.5 g/dL (6.4-8.2) 02/13/17 04:35 Albumin 3.0 g/dL (3.4-5.0) L 02/13/17 04:35 Globulin 3.5 g/dL (2.5-4.5) 02/13/17 04:35 Albumin/Globulin Ratio 0.9 Ratio (1.1-2.1) L 02/13/17 04:35 Stool Description 20 g formed,brown 02/13/17 01:50 Stl Occult Blood (IFOB) Negative (NEGATIVE) 02/13/17 01:50 Blood Type O POSITIVE 02/11/17 18:42 Antibody Screen Negative 02/11/17 18:42 Crossmatch See Detail 02/11/17 18:42 - Plan (1) Anemia Status: Acute Qualifiers: Anemia type: unspecified type Iron deficiency anemia type: I Vitamin B12 deficiency anemia type: V Folate deficiency anemia type: F Bone marrow failure anemia type: B Hemolytic anemia type: H Other causes of anemia: O Chronic kidney disease stage: C Qualified Code(s): D64.9 - Anemia, unspecified Plan: TRANSFUSE 2 UNITS PRBC, CONTINUE TO MONITOR H&H (2) Depression Status: Chronic Qualifiers: Depression Type: D Major depression recurrence: M Active/Remission status : A Major depression episode severity: M Psychotic features: P Trimester: T Plan: CONTINUE ZOLOFT, CONTINUE TO MONITOR (3) COPD (chronic obstructive pulmonary disease) Status: Chronic Qualifiers: COPD type: unspecified COPD Chronic bronchitis type: C Emphysema type: E Qualified Code(s): J44.9 - Chronic obstructive pulmonary disease, unspecified Plan: CONTINUE BREATHING [place], CONTINUE TO MONITOR (4) Diabetes mellitus, type 2 Status: Chronic Qualifiers: Diabetes mellitus complication status: with unspecified complications Diabetes mellitus complication detail: D Diabetic retinopathy severity: D Proliferative retinopathy type: P Diabetes mellitus macular edema: D Diabetes mellitus equipment operator intermodal yard insulin use: with equipment operator intermodal yard use Laterality: L Chronic kidney disease stage: C Qualified Code(s): E11.8 - Type 2 diabetes mellitus with unspecified complications; Z79.4 - [facility] (current) use of insulin Plan: START SSI, CONTINUE LEVEMIR, CONTINUE TO MONITOR (5) GERD (gastroesophageal reflux disease) Status: Chronic Qualifiers: Esophagitis presence: E Plan: CONTINUE PEPCID, CONTINUE PROTONIX, CONTINUE TO MONITOR (6) Hypertension Status: Chronic Qualifiers: Hypertension type: essential hypertension Qualified Code(s): I10 - Essential (primary) hypertension Plan: CONTINUE LISINOPRIL, CONTINUE TO MONITOR
[2017-02-13] MEDS: PEPCID 20 MG IV PREMIX* 20 MG/50 ML BAG IV SCH ×2 (10:37→21:33)
[2017-02-13] MEDS: LIPITOR TAB 20 MG PO SCH (10:37)
[2017-02-13] MEDS: COREG TAB 25 MG PO SCH ×2 (10:37→21:35)
[2017-02-13] MEDS: VITAMIN C PO SCH ×2 (10:38→21:35)
[2017-02-13] MEDS: ZESTRIL TAB 5 MG PO SCH (10:38)
[2017-02-13] MEDS: ZOLOFT PO SCH (10:38)
[2017-02-13] MEDS: PROTONIX TAB 40 MG PO SCH (10:38)
[2017-02-13] MEDS: HumuLIN R SUBCUT PRN ×2 (16:30→20:24)
[2017-02-13] MEDS: ULTRAM PO PRN (21:34)
[2017-02-13] MEDS: SNACK - Diabetic Appropriate PO SCH (21:35)
[2017-02-13] MEDS: LEVEMIR SC SCH (21:36)
[2017-02-14] MEDS: NS 1000 ML 1,000 ML IV SCH (04:25)
[2017-02-14 06:18] LABS: BASOPHILS % (AUTO) 0.3 % (0.2-1.0); EOSINOPHILS # (AUTO) 0.1 x10^3/uL (0.0-0.2); EOSINOPHILS % (AUTO) 1.5 % (0.9-2.9); HEMATOCRIT 28.2 % (36.0-47.0); HEMOGLOBIN 9.3 g/dL (12.0-16.0); LYMPHOCYTES % (AUTO) 14.4 % (21.0-51.0); MEAN CORPUSCULAR HEMOGLOBIN 27.5 pg (27.0-34.0); MEAN CORPUSCULAR HGB CONC 32.9 g/dL (33.0-35.0); MEAN CORPUSCULAR VOLUME 83.6 fL (80.0-100.0); MEAN PLATELET VOLUME 8.8 fL (7.4-11.0); MONOCYTES # (AUTO) 0.7 x10^3/uL (0.3-0.8); MONOCYTES % (AUTO) 11.3 % (0.0-13.0); NEUTROPHILS # (AUTO) 4.8 x10^3/uL (2.2-4.8); NEUTROPHILS % (AUTO) 72.5 % (42.0-75.0); PLATELET COUNT 207 X10^3/uL (150.0-450.0); RED BLOOD COUNT 3.37 X10^6/uL (3.5-5.4); RED CELL DISTRIBUTION WIDTH 16.7 % (11.6-16.5); WHITE BLOOD COUNT 6.6 X10^3/uL (3.6-10.0)
[2017-02-14 06:36] LABS: ALANINE AMINOTRANSFERASE 31 Units/L (12-78); ALBUMIN 2.8 g/dL (3.4-5.0); ALKALINE PHOSPHATASE 94 Units/L (46-116); ASPARTATE AMINO TRANSFERASE 29 Units/L (15-37); BLOOD UREA NITROGEN 15 mg/dL (7-18); CALCIUM 7.9 mg/dL (8.5-10.1); CARBON DIOXIDE 25.8 mmol/L (21-32); CHLORIDE 109 mmol/L (98-107); COR CA(FOR HYPOALB) 8.9 mg/dL (8.5-10.1); COR NA(FOR HYPERGLY) 143 mmol/L (136-145); CREATININE 0.96 mg/dL (0.55-1.02); GLUCOSE 123 mg/dL (65-99); SODIUM 142 mmol/L (136-145); eGFR BLACK RACES > 60 (>60); eGFR NON BLACK RACES > 60 (>60)
[2017-02-14 07:49] VITALS: BP 139/78
[2017-02-14] MEDS: PROVENTIL NEB TX 0.083% 2.5MG/ 3ML NEB SCH ×2 (08:33→12:04)
[2017-02-14] MEDS: PULMICORT NEB TX 0.5 MG NEB SCH (08:33)
[2017-02-14] MEDS: PEPCID 20 MG IV PREMIX* 20 MG/50 ML BAG IV SCH (09:27)
[2017-02-14] MEDS: PROTONIX TAB 40 MG PO SCH (09:28)
[2017-02-14] MEDS: ZOLOFT PO SCH (09:28)
[2017-02-14] MEDS: COREG TAB 25 MG PO SCH (09:28)
[2017-02-14] MEDS: VITAMIN C PO SCH (09:28)
[2017-02-14] MEDS: ZESTRIL TAB 5 MG PO SCH (09:28)
[2017-02-14] MEDS: LIPITOR TAB 20 MG PO SCH (09:29)
== END 2017-02-14 12:10 | DRG 812 ==
LOC: MED/SURG 16:06
PROVIDERS: ADMIT Internal Medicine; ATTEND Internal Medicine
PROC: 30253N1 (ICD-10-PCS; 2017-02-11)
PROC: 30253N1 (ICD-10-PCS; 2017-02-11)
PROC: 0W3P8ZZ Control Bleeding in Gastrointestinal Tract, Via Natural or Artificial Opening Endoscopic (ICD-10-PCS; principal; 2017-02-13 17:15)
DX: D50.8 Other iron deficiency anemias (principal); Q27.33 Arteriovenous malformation of digestive system vessel; D52.8 Other folate deficiency anemias; I12.9 Hypertensive chronic kidney disease with stage 1 through stage 4 chronic kidney disease, or unspecified chronic kidney disease; N18.3 Chronic kidney disease, stage 3 (moderate); B18.2 Chronic viral hepatitis C; Z86.010 Personal history of colon polyps; J44.9 Chronic obstructive pulmonary disease, unspecified; F32.89 Other specified depressive episodes; K21.0 Gastro-esophageal reflux disease with esophagitis; K29.60 Other gastritis without bleeding; R00.0 Tachycardia, unspecified; R06.02 Shortness of breath
CPT/HCPCS: 36415; 80053; 82270; 85014; 85018; 85025; 86850; 86900; 86901; 86922; 93005; 93306; 94640; A4216; A4222; P9016; S0028; 1956; A4217; J1200; J1610; J1815; J3490; J7613; J7626